=== PATIENT | female | born 1950 | race Caucasian/White ===

== ENCOUNTER 2025-08-02 11:34 | Emergency (ER) | payer BC, MEDICARE ==
[~2025-08-02] VITALS: Ht 157.5 cm; Wt 62.6 kg
[~2025-08-02 11:34] MED LIST: Z.0.SIMVASTATIN40 MG PO; Z.0.TEMAZEPAM30 MG PO; Z.0.ZYRTEC10 M3 PO; [UNRECOGNIZED DRUG - OTHER]; [UNRECOGNIZED DRUG - OTHER]; [UNRECOGNIZED DRUG - OTHER] PO
[2025-08-02 11:39] VITALS: TEMP 98.1
[2025-08-02 12:08] LABS: BASOPHILS % 0.4 % (0.0-1.0); EOSINOPHILS % 0.1 % (0.0-6.0); LYMPHOCYTES % 13.7 % (18.0-39.1); MONOCYTES % 4.2 % (4.4-11.3); NEUTROPHILS % 81.3 % (38.7-80.0); RED CELL DISTRIBUTION WIDTH 13.1 % (11.7-14.4)
[2025-08-02] MEDS: ONDANSETRON HCL INJ 2MG/ML 2ML 2 MG/ML VIAL IV STA (12:20)
[2025-08-02] MEDS: SODIUM CHLORIDE 0.9% 1000ML 1,000 ML IV ONE (12:21)
[2025-08-02] MEDS: Morphine 4mg INJECTION 4 MG/ML INJ IV ONE (12:21)
[2025-08-02 12:33] LABS: EST GLOMERULAR FILTRATION RATE 61.0 ML/MIN (>=60)
[2025-08-02] MEDS ORDERED: IOPAMIDOL 370 MG/ML 100 ML INFUS..BTL INJ ONE (12:49)
[2025-08-02 14:59] LABS: LEUKOCYTE ESTERASE ,URINE NEGATIVE (NEGATIVE); PROTEIN,URINE DIPSTICK NEGATIVE (NEGATIVE); URINE UROBILINOGEN 0.2 mg/dL (0.2 - 1)
[2025-08-02 15:11] LABS: EPITHELIAL CELLS,URINE FEW /LPF; WBC,URINE (MAN) 0-5 /HPF (0-5)
[2025-08-02 15:30] VITALS: PULSE 71; RESP 16; O2SAT 99
[2025-08-02] MEDS ORDERED: DICYCLOMINE HCL20 MG PO (15:35)
[2025-08-02] MEDS ORDERED: ONDANSETRON ODT4 MG PO (15:35)
== END 2025-08-02 15:50 | disposition home or self-care (01) ==
LOC: ER 11:39
DX: R10.12 Left upper quadrant pain (principal); K52.9 Noninfective gastroenteritis and colitis, unspecified; R18.8 Other ascites; K57.90 Diverticulosis of intestine, part unspecified, without perforation or abscess without bleeding; K44.9 Diaphragmatic hernia without obstruction or gangrene; K76.0 Fatty (change of) liver, not elsewhere classified; R11.2 Nausea with vomiting, unspecified; I10 Essential (primary) hypertension; E78.5 Hyperlipidemia, unspecified
CPT/HCPCS: 36415; 74177; 80053; 81001; 83690; 85025; 99284; J2270; J2405; J2543; J7030; Q9967